=== PATIENT | male | born 1965 | race Caucasian/White ===

== ENCOUNTER 2018-08-10 16:52 | Emergency (ER) | payer OTHER ==
[~2018-08-10] VITALS: Ht 180.3 cm; Wt 78.0 kg
--- NOTE | 2018-08-10 17:10 | NUR ---
PT TO ED FROM [facility] WITH GROSS HEMATURIA, NO PAIN OR DIFFICULTY URINATING. HX ENLARGED PROSTATE
--- NOTE | 2018-08-10 17:35 | NUR ---
blood drawn and ua collected, sent to lab
--- NOTE | 2018-08-10 17:37 | NUR ---
CT PENDING LAB/CREATINE.
[2018-08-10 17:47] LABS: BASOPHILS # (AUTO) 0.03 x10^3/uL (0-0.1); BASOPHILS % (AUTO) 0 % (0-1); EOSINOPHILS # (AUTO) 0.22 x10^3/uL (0-0.4); EOSINOPHILS % (AUTO) 3 % (1-7); LYMPHOCYTES # (AUTO) 3.07 x10^3/uL (1-3.4); LYMPHOCYTES % (AUTO) 37 % (22-44); MD NO; MEAN CORPUSCULAR HEMOGLOBIN 30.9 pg (27.5-34.5); MEAN CORPUSCULAR HGB CONC 33.9 g/dL (33.2-36.2); MONOCYTES # (AUTO) 0.52 x10^3/uL (0.2-0.8); MONOCYTES % (AUTO) 6 % (2-9); NEUTROPHILS % (AUTO) 54 % (42-75); PLATELET COUNT 209 x10^3/uL (130-400); RED BLOOD COUNT 5.23 x10^6/uL (4.38-5.82); RED CELL DISTRIBUTION WIDTH 12.7 % (9.4-14.8)
[2018-08-10 17:56] LABS: ALANINE AMINOTRANSFERASE 31 U/L (12-78); ALBUMIN 4.2 g/dL (3.4-5.0); ANION GAP 6 mmol/L (5-15); CALCIUM 8.9 mg/dL (8.5-10.1); CHLORIDE 109 mmol/L (98-107); CREATININE 0.96 mg/dL (0.7-1.3)
[2018-08-10 17:58] LABS: ALKALINE PHOSPHATASE 48 U/L (45-117); BILIRUBIN,TOTAL 0.7 mg/dL (0.2-1.0); TOTAL PROTEIN 6.9 g/dL (6.4-8.2)
[2018-08-10 18:06] VITALS: BP 126/72
--- NOTE | 2018-08-10 18:16 | NUR ---
PT TO CT
[2018-08-10 18:28] LABS: MICROSCOPIC INDICATED
[2018-08-10 18:34] LABS: CULTURE INDICATED? NO
--- NOTE | 2018-08-10 18:35 | NUR ---
PT RETURNED FROM CT
[2018-08-10] MEDS ORDERED: OMNIPAQUE 350 MG/ML, 100ML BOTTLE ONE (18:44)
--- NOTE | 2018-08-10 19:04 | NUR ---
REPORT RECEIVED FROM RADHA CLAYTON. ASSUMED CARE OF PT. PT RESTING ON THE GURNEY IN NAD. VITALS STABLE. AWAITING CT READ AT THIS TIME.
--- NOTE | 2018-08-10 19:50 | NUR ---
Patient/Caregiver given discharge instructions and they have confirmed that they understand the instructions. Patient ambulatory with steady gait.
== END 2018-08-10 20:08 | disposition home or self-care (01) ==
LOC: ED 17:40
DX: N20.1 Calculus of ureter (principal)
CPT/HCPCS: 36415; 74178; 80053; 81001; 83690; 85025; 99284; Q9967